=== PATIENT | female | born 1970 | race African-American/Black ===

== ENCOUNTER 2022-08-09 10:15 | Outpatient (CLI) | payer BC ==
[2022-08-09 22:55] LABS: BACTERIAL VAGINOSIS DNA NEGATIVE (NEGATIVE); CANDIDA KRUSEI DNA NEGATIVE (NEGATIVE)
[2022-08-09 22:56] LABS: CANDIDA GLABRATA DNA NEGATIVE (NEGATIVE); CANDIDA GROUP DNA NEGATIVE (NEGATIVE); TRICHOMONAS VAGINALIS DNA NEGATIVE (NEGATIVE)
== END 2022-08-09 10:30 | disposition home or self-care (01) ==
LOC: LAB.N 10:15
PROVIDERS: ATTEND Physician Assistant Medical
DX: N39.0 Urinary tract infection, site not specified (principal)
CPT/HCPCS: 81514; 87086

== ENCOUNTER 2023-11-24 09:23 | Emergency (ER) | payer SELFPAY ==
--- NOTE | 2023-11-24 10:01 | ED Physician Documentation ---
PD HPI CHEST PAIN - Stated complaint Stated Complaint: SEVERE CHEST PX - Chief complaint Chief Complaint: Cardiac - History obtained from History obtained from: Patient - Additional information Additional information: 53-year-old woman with history of hypertension on amlodipine but did not take it this morning. She has no history of heart troubles. For the last 3 days she has had intermittent left-sided chest pressure. She has a history of reflux but this does not feel the same. When she gets that she is short of breath and it is somewhat exertional. She denies pedal edema or calf pain. No sweats or nausea. PD PAST MEDICAL HISTORY - Past Medical History Past Medical History: Yes Cardiovascular: Hypertension Respiratory: None Neuro: None Endocrine/Autoimmune: None GI: GERD MED ADMIN: None : None HEENT: None Psych: Depression Musculoskeletal: Osteoarthritis Derm: None - Past Surgical History Past Surgical History: Yes /MED ADMIN: Tubal ligation - Present Medications Home Medications: Ambulatory Orders Medication Instructions Recorded Confirmed Amlodipine Besylate [Norvasc] 10 mg PO DAILY 11/24/23 11/24/23 - Allergies Allergies/Adverse Reactions: Allergies Allergy/AdvReac Type Severity Reaction Status Date / Time No Known Drug Allergies Allergy Verified 11/24/23 09:31 - Social History Does the pt smoke?: No Smoking Status: Never smoker Does the pt drink ETOH?: Yes Does the pt have substance abuse?: No - Immunizations Immunizations are current?: No - POLST Patient has POLST: No PD ED PE NORMAL - Vitals Vital signs reviewed: Yes - General General: Alert and oriented X 3, No acute distress - Neck Neck: Supple, no meningeal sign, No bony TTP - Cardiac Cardiac: RRR, No murmur - Respiratory Respiratory: No respiratory distress, Clear bilaterally - Abdomen Abdomen: Normal bowel sounds, Soft, Non tender - Back Back: No CVA TTP, No spinal TTP - Derm Derm: Normal color, Warm and dry - Extremities Extremities: No edema, No calf tenderness / cord - Neuro Neuro: Alert and oriented X 3, No motor deficit, No sensory deficit, Normal speech Eye Opening: Spontaneous Motor: Obeys Commands Verbal: Oriented GCS Score: 15 - Psych Psych: Normal mood, Normal affect Results - Vitals Vitals: Vital Signs - 24 hr 11/24/23 11/24/23 11/24/23 09:32 10:19 11:06 Temperature 38.2 C H 37.7 C Heart Rate 68 86 71 Respiratory 22 18 17 Rate Blood Pressure 181/120 H 149/123 H 165/96 H O2 Saturation 100 100 100 11/24/23 11/24/23 11/24/23 13:51 16:00 18:05 Temperature 37.2 C Heart Rate 76 75 84 Respiratory 18 18 18 Rate Blood Pressure 154/97 H 141/92 H 144/89 H O2 Saturation 93 97 99 Oxygen O2 Source Room air - EKG (time done) 0943 EKG releavant findings:: EKG personally interpreted by author of this note. Relevant findings are: Rate: Rate (enter#) (62) Rhythm: NSR [place]: Normal QRS: LVH Ischemia: Normal ST segments 1139 EKG releavant findings:: EKG personally interpreted by author of this note. Relevant findings are: Rate: Rate (enter#) (61) Rhythm: NSR [place]: Normal QRS: LVH Ischemia: No: ST elevation c/w ischemia, ST depression Compare to prior EKG: Unchanged from prior EKG (No change from first EKG done earlier in the visit.) - Labs Labs: Laboratory Tests 11/24/23 11/24/23 11/24/23 09:50 09:50 11:45 WBC 4.8 RBC 5.01 Hgb 13.3 Hct 41.7 MCV 83.2 MCH 26.5 L MCHC 31.9 L RDW 12.5 Plt Count 207 MPV 10.2 Neut # (Auto) 2.8 Lymph # (Auto) 1.4 L [place] # (Auto) 0.5 Eos # (Auto) 0.0 Baso # (Auto) 0.0 Absolute Nucleated RBC 0.00 Nucleated RBC % 0.0 Sodium 139 Potassium 3.6 Chloride 104 Carbon Dioxide 28 Anion Gap 7.0 BUN 17 Creatinine 0.9 Estimated GFR (MDRD) 79 L Glucose 84 Calcium 9.5 Total Bilirubin 0.9 AST 17 ALT 12 Alkaline Phosphatase 73 Troponin I High Sens 4.0 4.6 Total Protein 7.2 Albumin 4.2 Globulin 3.0 Albumin/Globulin Ratio 1.4 Lipase 19 - Rads (name of study) 1v CXR- NAD Relevant Findings:: Final report received, EMP independent interpretation of test PD Medical Decision Making - ED course ED course: 53-year-old woman with episodic somewhat exertional and typical chest pain. EKG is nonischemic but with signs of LVH for which improved blood pressure control and follow-up was advised. She did not take her amlodipine this morning and she is hypertensive so was administered her amlodipine as well as an aspirin. She is also noted to be febrile. From that perspective she does not have any seemingly relevant symptoms, no chills, runny nose, sore throat, cough, urinary complaints, abdominal pain. Subsequent testing demonstrated mild lymphopenia so her fever is probably from a viral etiology. CMP normal with negative troponin. These results are reassuring, but we do worry about the atypicality of her pain and I placed a call to [place] [facility] for follow-up at 10:37 AM. There was a delay to calling back, I received a call from the nurse up there who told me that the on-call sourcing assistant was in a procedure but she took the patient's info and said she would get a hold of him to call me back. A second EKG and troponin were ordered with no interval change from the first EKG. I did speak with Dr. Alford at 12:20 PM and we discussed the case. He felt that given her symptomatology that it would probably be better for her to get transferred up for an inpatient workup. Subsequently notified that [facility] did not have any beds. The health unit control worker called around and multiple local hospitals for full delaying her transfer. Spoke with Dr. Cabezas, sourcing assistant at [facility] at 1440 who agrees with transfer pending bed availability at [facility]. At 3:16 PM I presented the case to Dr. Gibran Hernandez, sourcing assistant now at [facility] and he is okay with her being transferred but defers to the hospitalist for admission. She was excepted [facility] by Dr. Elana Pack at 5:25 PM pending bed availability. [place] are completed and she is stable for transport. As of the end of my shift, 7 PM, no bed is yet available and she is boarding. Departure - Departure Disposition: 02 Transfer Acute Care Hosp Clinical Impression: Chest pain Condition: Stable Comments: You do have signs of left ventricular hypertrophy, and enlarged heart, on EKG. This is usually because of long-term elevated blood pressure and it is important to follow-up with your primary care physician for improved blood pressure control and they may also want to obtain echocardiography. Forms: PCP List
[2023-11-24 10:13] LABS: BASOPHILS % (AUTO) 0.8 %; EOSINOPHILS % (AUTO) 0.8 %; HCT - HEMATOCRIT 41.7 % (37.0-47.0); HGB - HEMOGLOBIN 13.3 g/dL (12.0-16.0); LYMPHOCYTES # (AUTO) 1.4 10^3/uL (1.5-3.5); LYMPHOCYTES % (AUTO) 29.2 %; MEAN CORPUSCULAR HEMOGLOBIN 26.5 pg (27.0-31.0); MEAN CORPUSCULAR HGB CONC 31.9 g/dL (32.0-36.0); MEAN CORPUSCULAR VOLUME 83.2 fL (81.0-99.0); MEAN PLATELET VOLUME 10.2 fL (7.9-10.8); MONOCYTES # (AUTO) 0.5 10^3/uL (0.0-1.0); NEUTROPHILS # (AUTO) 2.8 10^3/uL (1.5-6.6); PLT - PLATELET COUNT 207 10^3/uL (130-450); RED BLOOD COUNT 5.01 10^6/uL (4.20-5.40); RED CELL DISTRIBUTION WIDTH 12.5 % (12.0-15.0); WHITE BLOOD COUNT 4.8 x10^3/uL (4.8-10.8)
[2023-11-24] MEDS: ASPIRIN CHEW 81 MG TABLET PO STA (10:17)
[2023-11-24] MEDS: amLODIPine 5 MG TABLET PO STA (10:18)
[2023-11-24 10:23] LABS: ALBUMIN 4.2 g/dL (3.2-5.5); ALBUMIN/GLOBULIN RATIO 1.4 (1.0-2.2); BILIRUBIN,TOTAL 0.9 mg/dL (0.2-1.0); CALCIUM 9.5 mg/dL (8.5-10.3); CREATININE 0.9 mg/dL (0.6-1.3); POTASSIUM 3.6 mmol/L (3.5-4.5); TOTAL PROTEIN 7.2 g/dL (6.4-8.9)
--- NOTE | 2023-11-24 11:16 | XRAY Report ---
PROCEDURE: Chest 1V INDICATIONS: Chest Pain TECHNIQUE: One view of the chest was acquired. COMPARISON: None FINDINGS: Surgical changes and devices: None. Lungs and pleura: No pleural effusions or pneumothorax. Lungs are clear. Mediastinum: Mediastinal contours appear normal. Heart size is normal. Bones and chest wall: No suspicious bony lesions. Overlying soft tissues appear unremarkable. IMPRESSION: No acute cardiopulmonary findings Reviewed by: Wolfgang Egan MD on 11/24/2023 10:15 AM RUCHI Approved by: Wolfgang Egan MD on 11/24/2023 10:15 AM AKDT Station ID: [id number]
[2023-11-24] MEDS: ACETAMINOPHEN 500 MG TABLET PO STA (16:49)
[2023-11-24 18:13] VITALS: O2SAT 99
[2023-11-24] MEDS ORDERED: ACETAMINOPHEN 500 MG TABLET PO PRN (19:05)
[2023-11-24] MEDS ORDERED: ONDANSETRON 4 MG/2 ML VIAL IVP PRN (19:05)
[2023-11-24] MEDS: MAG HYDROX/AL HYDROX/SIMETH 30 ML UDC PO STA (20:06)
[2023-11-24] MEDS: SUCRALFATE 1 GM/10 ML UDC PO STA (20:06)
[2023-11-24] MEDS: LIDOCAINE VISCOUS 2% 15 ML UDC MM STA (20:06)
--- NOTE | 2023-11-24 20:28 | ED Physician Documentation ---
ED Addendum - Addendum Addendum: 11/24/23 21:08 Alok Dale is left in my care at shift change anticipating a transfer to [facility] for evaluation of chest pain. She has a history of exertional chest pain associated with dyspnea that is repeatable and resolves with rest. She also has a history of reflux. Today in the emergency department she has been evaluated by Dr. Peck and arrangements have been made for transfer. She has nondiagnostic electrocardiogram and normal troponins. I was called into her room with incident of chest pain on examination I found her chest wall to be tender reproducing the pain she was complaining of and she also indicated that she was having burning sensation as well. This responded to a treatment with viscous lidocaine and Mylanta. The chest wall tenderness did not and she was administered 30 mg of Toradol IV. We did repeat a electrocardiogram at the time of her symptoms here in the emergency department. I do believe the patient still needs a stress test for her exertional dyspnea and chest pain. She has uncontrolled hypertension as well and transfer medics were instructed to use labetalol 10mg push en-route for pressure over 180. 11/25/23 01:20 Results - Vitals Vitals: Vital Signs - 24 hr 11/24/23 11/24/23 11/24/23 09:32 10:19 11:06 Temperature 38.2 C H 37.7 C Heart Rate 68 86 71 Respiratory 22 18 17 Rate Blood Pressure 181/120 H 149/123 H 165/96 H O2 Saturation 100 100 100 11/24/23 11/24/23 11/24/23 13:51 16:00 18:05 Temperature 37.2 C Heart Rate 76 75 84 Respiratory 18 18 18 Rate Blood Pressure 154/97 H 141/92 H 144/89 H O2 Saturation 93 97 99 11/24/23 19:19 Temperature Heart Rate 88 Respiratory 97 H Rate Blood Pressure 107/92 H O2 Saturation Oxygen O2 Source Room air - EKG (time done) 2003 EKG releavant findings:: EKG personally interpreted by author of this note. Relevant findings are: Rate: Rate (enter#) (91) Rhythm: NSR Intervals: Other (short [place]) Compare to prior EKG: Changed from prior EKG (SPT done earlier today has increased rate) Computer interpretation: Agree with computer - Labs Labs: Laboratory Tests 11/24/23 11/24/23 11/24/23 09:50 09:50 11:45 WBC 4.8 RBC 5.01 Hgb 13.3 Hct 41.7 MCV 83.2 MCH 26.5 L MCHC 31.9 L RDW 12.5 Plt Count 207 MPV 10.2 Neut # (Auto) 2.8 Lymph # (Auto) 1.4 L [place] # (Auto) 0.5 Eos # (Auto) 0.0 Baso # (Auto) 0.0 Absolute Nucleated RBC 0.00 Nucleated RBC % 0.0 Sodium 139 Potassium 3.6 Chloride 104 Carbon Dioxide 28 Anion Gap 7.0 BUN 17 Creatinine 0.9 Estimated GFR (MDRD) 79 L Glucose 84 Calcium 9.5 Total Bilirubin 0.9 AST 17 ALT 12 Alkaline Phosphatase 73 Troponin I High Sens 4.0 4.6 Total Protein 7.2 Albumin 4.2 Globulin 3.0 Albumin/Globulin Ratio 1.4 Lipase 19
[2023-11-24] MEDS: KETOROLAC 30 MG/ML VIAL IVP STA (21:12)
[2023-11-24 21:24] VITALS: BP 152/101
[2023-11-25] MEDS ORDERED: PANTOPRAZOLE 40 MG TABLET PO SCH (07:00)
[2023-11-25] MEDS ORDERED: ASPIRIN CHEW 81 MG TABLET PO SCH (09:00)
[2023-11-25] MEDS ORDERED: amLODIPine 5 MG TABLET PO SCH (09:00)
== END 2023-11-24 21:36 | disposition short-term general hospital (02) ==
LOC: ED 09:23
DX: I20.0 Unstable angina (principal); I10 Essential (primary) hypertension; R07.89 Other chest pain; R06.09 Other forms of dyspnea
CPT/HCPCS: 36415; 71045; 80053; 83690; 84484; 85025; 93005; 96374; 99285; A9270

== ENCOUNTER 2023-12-10 10:05 | Outpatient (CLI) | payer MEDICAID ==
[2023-12-10 13:07] LABS: CHOL/HDL RATIO 2.6 (<4.4); CHOLESTEROL 129 mg/dL; HDL CHOLESTEROL 50 mg/dL; LDL CHOLESTEROL,CALCULATED 61 mg/dL; LDL/HDL RATIO 1.2 (<4.4); TRIGLYCERIDES 88 mg/dL; VLDL CHOLESTEROL 18 mg/dL
[2023-12-10 13:10] LABS: THYROID STIMULATING HORMONE 2.66 uIU/mL (0.34-5.60)
[2023-12-10 13:13] LABS: ESTIMATED AVERAGE GLUCOSE 114 mg/dL (70-100); HEMOGLOBIN A1c% 5.6 % (4.27-6.07)
== END 2023-12-10 10:06 | disposition home or self-care (01) ==
LOC: LAB.N 10:05
DX: I10 Essential (primary) hypertension (principal)
CPT/HCPCS: 36415; 80061; 83036; 83721; 84443